=== PATIENT | female | born 1945 | race Caucasian/White ===

== ENCOUNTER 2024-06-30 02:59 | Emergency (ER) | payer OTHER, SELFPAY ==
[2024-06-30 03:03] VITALS: BP 126/62
[2024-06-30 03:07] VITALS: BP 126/62
[2024-06-30 03:28] LABS: % Basophils 0.2 % (0-2); % Immature Granulocytes 0.5 % (0-0.5); % Lymphocytes 9.3 % (20.5-51.1); % Monocytes 7.6 % (1.7-9.3); % Neutrophils 82.4 % (42.2-75.2); Absolute Immature Granulocytes 0.1 10^3/uL (0-0.05); Absolute Lymphocytes 0.9 10^3/uL (1.2-3.4); Absolute Monocytes 0.8 10^3/uL (0.1-0.6); Absolute Neutrophils 8.2 10^3/uL (1.4-6.5); Hematocrit 34.5 % (37.0-47.0); Hemoglobin 12.4 g/dL (12.0-16.0); Mean Corp Hgb Conc. 35.9 g/dL (33.0-37.0); Mean Corpuscular Hgb 32.8 pg (27.0-31.0); Mean Corpuscular Volume 91.3 fL (81.0-99.0); Mean Platelet Volume 10.3 fL (7.4-10.4); Nucleated Red Blood Cells % 0 %; Platelet Count 175 10^3/uL (130-400); Red Blood Cell Count 3.78 10^6/uL (4.20-5.40); White Blood Cell Count 9.9 10^3/uL (4.8-10.8)
--- NOTE | 2024-06-30 03:33 | ED.GENMED ---
History of Present Illness
General
Chief Complaint: Cough
Time Seen by Provider: 06/30/24 03:33
History of Present Illness
History of Present Illness:
TIME OF INITIAL ENCOUNTER: 3:45 AM
HPI:
The patient came in due to pain when she coughs. She was diagnosed with COVID 4 days ago. She has been on Paxlovid. Currently she does not have as much pain when she coughs as she did earlier.
EXAM:
GENERAL: Well appearing in no distress, room air sats 92 to 95%
HEENT: Moist oral mucosa
CARDIOVASCULAR: No murmurs, normal heart rate, regular rhythm, No chest wall tenderness
PULMONARY: No respiratory distress, breath sounds are clear and equal other than some questionable rales at the left base but not consistently heard
ABDOMEN: Soft with no peritoneal signs, no tenderness
NEUROLOGIC: Good strength all extremities, no coordination deficits
PSYCHIATRIC: Appropriate mental status, normal insight and judgement
EXTREMITIES: Nontender, no edema, moves all extremities equally
SKIN: No rash, no lesions
NUMBER AND COMPLEXITY OF PROBLEMS ADDRESSED AT THE ENCOUNTER
� Chronic conditions affecting care: High blood pressure, DM
� Acute Exacerbation and/or Progression of Chronic Illness: This is an acute problem
� Differential Diagnosis includes: COVID, bacterial pneumonia, COVID-pneumonia, bronchitis
AMOUNT AND/OR COMPLEXITY OF DATA TO BE REVIEWED AND ANALYZED
� I performed an independent evaluation of and my interpretation is:
EKG:
CT:
X-rays: Chest x-ray shows no definite pneumonia other than a questionable abnormality of the left base
Laboratory Studies: White count 9.9, mild lymphocytopenia noted, glucose 207
Other:
� Review of other/old records: The patient was here in 2021 with left humerus fracture
� Clinical information was obtained by an independent historian: None needed
� Prescriptions/Medications Considered but not given:
� Further testing considered but not performed:
RISK OF COMPLICATIONS AND/OR MORBIDITY OR MORTALITY OF PATIENT MANAGEMENT
� Social determinants of health affecting care: Comes in from home
� Discussion with other providers:
� Escalation of care including admission/observation vs risk of discharge considered: The patient was given Tylenol for both fever and pain. However the pain is already improved compared to prior. The pain is primarily only
present when she is coughing. She does not have any ongoing pain at rest.
ANY OTHER UPDATES:
On reassessment at 5:15 AM: Patient's fever broke she became sweaty but overall has been feeling improved. She still primarily just has pain in the chest only when she coughs. Low bicarb noted but was also low in the past.
Phy Exam
Physical Exam
Physical Exam:
See HPI
Course
Orders/Labs/Results
Orders:
Orders
06/30/24 03:19
CMP [Comprehensive Metabolic Panel] Urgent
Complete Blood Count/With Diff Urgent
06/30/24 03:34
CR Chest Portable - 1 View Urgent
Comment:
Reason For Exam: covid (+), pain
Reason Study Needs to be Portable: Other
06/30/24 03:52
Acetaminophen [Tylenol] 1,000 mg .ROUTE .STK-MED ONE
06/30/24 03:54
Acetaminophen [Tylenol] 1,000 mg PO NOW STA
Abnormal Lab Results
06/30/24
03:19
RBC 3.78 L 10^6/uL
(4.20-5.40)
Hct 34.5 L %
(37.0-47.0)
MCH 32.8 H pg
(27.0-31.0)
Abs Immat Gran (auto) 0.1 H 10^3/uL
(0-0.05)
Absolute Neuts (auto) 8.2 H 10^3/uL
(1.4-6.5)
Absolute Lymphs (auto) 0.9 L 10^3/uL
(1.2-3.4)
Absolute Monos (auto) 0.8 H 10^3/uL
(0.1-0.6)
Neutrophils % 82.4 H %
(42.2-75.2)
Lymphocytes % 9.3 L %
(20.5-51.1)
Carbon Dioxide 17 L mmol/L
(22-30)
Glucose 207 H mg/dl
(70-99)
AST 41 H U/L
(14-36)
ALT 37 H U/L
(0-35)
Total Protein 6.1 L g/dl
(6.3-8.2)
06/30/24 03:19
06/30/24 03:19
Vital Signs
Initial and Last Documented VS:
Initial Vital Signs
Temp Pulse Resp BP Pulse Ox
101.9 F H 105 20 126/62 95
06/30/24 03:03 06/30/24 03:03 06/30/24 03:03 06/30/24 03:03 06/30/24 03:03
Last Documented Vital Signs
Temp Pulse Resp BP Pulse Ox
101.9 F H 105 20 126/62 95
06/30/24 03:03 06/30/24 03:03 06/30/24 03:03 06/30/24 03:03 06/30/24 03:03
*Critical Care Note
Total Time (30-74mins, 75-104mins- exclusive of procedures): Not Applicable
ED Attending Note
-
Portions of this chart may have been created with voice recognition software.� Occasional wrong word or��sound alike� substitutions may have occurred due to the inherent limitations of voice recognition software.
Discharge Plan
Departure
Patient Disposition: Home (Routine Discharge)
Date of Disposition: 06/30/24
Time of Disposition: 05:56
Patient with high blood pressure during this ER visit?: Yes
Discharge Problem:
COVID-19
Instructions: Cough, Adult (DC), COVID-19 ED
Prescriptions:
No Action
losartan 50 mg Tablet
50 mg PO DAILY
metformin 500 mg Tablet
500 mg PO BID
aspirin [Irena Low Dose Aspirin] 81 mg Tablet,Delayed Release (Dr/Ec)
81 mg PO DAILY
glimepiride 1 mg Tablet
1 mg PO DAILY
verapamil 240 mg Tablet Extended Release
240 mg PO BID
acetaminophen [Tylenol Extra Strength] 500 mg Capsule
1,000 mg PO DAILY
Vitamin D3
1 tab PO DAILY
levothyroxine 0.137 MCG
0.137 mcg PO DAILY
Calcium 600 + D(3)
1 tab PO DAILY
Rx Instructions:
Ca-600 mg, D3-20 mcg
Centrum Women 18-400 mg-mcg Tablet
1 tab PO DAILY
Referrals:
Davis Rivas MD [Family Provider] -
Activity Restrictions/Additional Instructions:
There is no definite sign of pneumonia on the chest x-ray. I recommend Tylenol for pain. Your oxygen levels have been normal here. Your white blood cell count is normal.
Interventions
Interventions:
*Risk Screen - Suicide Last Done: 06/30/24 03:03
*General Assessment Last Done: 06/30/24 03:03
*Neglect/Abuse Screening Last Done: 06/30/24 03:03
ED- Fall Risk Assessment Last Done: 06/30/24 03:11
*ED COVID-19 Vaccine History Last Done: 06/30/24 03:11
ED- Pulmonary Assessment Last Done: 06/30/24 04:35
Discharge Date and Time
Print Language: SAMI
[2024-06-30 03:50] LABS: ALT (SGPT) 37 U/L (0-35); AST (SGOT) 41 U/L (14-36); Albumin 3.6 g/dl (3.5-5.0); Alkaline Phosphatase 117 U/L (38-126); Blood Urea Nitrogen 14 mg/dl (7-17); Calcium 8.8 mg/dl (8.4-10.2); Carbon Dioxide 17 mmol/L (22-30); Chloride 104 mmol/L (98-107); Estimated Creatinine Clearance 62 ml/min; Glucose 207 mg/dl (70-99); Potassium 4.2 mmol/L (3.5-5.1); Sodium 135 mmol/L (135-145); Total Bilirubin 0.6 mg/dl (0.2-1.3); Total Protein 6.1 g/dl (6.3-8.2); eGFR > 60.00
[2024-06-30] MEDS: TYLENOL 1000 MG PO (03:54)
[2024-06-30 04:00] VITALS: BP 130/57
[2024-06-30 06:51] VITALS: BP 127/91
== END 2024-06-30 07:22 | disposition home or self-care (01) ==
LOC: EMR 02:59
PROVIDERS: EMERGENCY PHYSICIAN Emergency Medicine; FAMILY PHYSICIAN Internal Medicine
DX: U07.1 COVID-19 (principal); I10 Essential (primary) hypertension; E11.9 Type 2 diabetes mellitus without complications
CPT/HCPCS: 99284; 71045; 80053; 85025